=== PATIENT | male | born 1965 | race Caucasian/White ===

== ENCOUNTER 2018-09-11 01:58 | Observation (INO) | payer SELFPAY, OTHER | END 2018-09-11 15:30 | disposition home or self-care (01) | LOC: C.ER 01:58 → C.6T 04:03 | DX: E11.9 Type 2 diabetes mellitus without complications (principal); I10 Essential (primary) hypertension; E78.5 Hyperlipidemia, unspecified; H53.9 Unspecified visual disturbance; M54.10 Radiculopathy, site unspecified; H57.12 Ocular pain, left eye; R53.1 Weakness ==